=== PATIENT | male | born 1960 | race Caucasian/White ===

== ENCOUNTER 2017-02-24 11:47 | Emergency (ER) | payer OTHER ==
[~2017-02-24] VITALS: Ht 180.3 cm; Wt 75.0 kg
[~2017-02-24 11:47] MED LIST: DOXE100C PO; GABA100C8 PO; HYDR50CA PO; LORA2TAB99 PO; QUET100T4 PO
[2017-02-24] MEDS ORDERED: ONDANSETRON 2MG/ML, 2ML IVPush ONE (12:30)
[2017-02-24] MEDS ORDERED: SODIUM CHLORIDE 0.9% 1,000ML IVBOLUS ONE (12:30)
[2017-02-24] MEDS ORDERED: FAMOTIDINE 20 MG/2 ML IVP ONE (12:30)
[2017-02-24] MEDS ORDERED: SODIUM CHLORIDE FLUSH 10ML SYR IVF ONE (12:30)
[2017-02-24] MEDS ORDERED: ONDANSETRON 2MG/ML, 2ML ONE (12:51)
[2017-02-24] MEDS ORDERED: FAMOTIDINE 20 MG/2 ML ONE (12:51)
[2017-02-24 13:16] LABS: BLOOD UREA NITROGEN 33 mg/dL (7-18)
[2017-02-24 13:20] LABS: ASPARTATE AMINO TRANSFERASE 7 U/L (15-37)
[2017-02-24 14:37] VITALS: BP 165/98
== END 2017-02-24 14:38 | disposition home or self-care (01) ==
LOC: ED 14:30
DX: K29.00 Acute gastritis without bleeding (principal); D72.829 Elevated white blood cell count, unspecified; F15.10 Other stimulant abuse, uncomplicated
CPT/HCPCS: 36415; 80053; 83690; 85025; 96361; 96374; 96375; 99284; J2405; J7030; S0028

== ENCOUNTER 2017-06-27 12:08 | Inpatient (IN) | payer OTHER ==
[~2017-06-27] VITALS: Ht 180.3 cm; Wt 78.1 kg
[~2017-06-27 12:08] MED LIST changes: +GABA-826 PO; -GABA100C8 PO
[2017-06-27] MEDS ORDERED: MORPHINE SULFATE 4 MG/ML, 1ML IVPush PRN (13:00)
[2017-06-27] MEDS ORDERED: SODIUM CHLORIDE FLUSH 10ML SYR IVF ONE (13:00)
[2017-06-27] MEDS ORDERED: FAMOTIDINE 20 MG/2 ML IVP ONE (13:00)
[2017-06-27] MEDS ORDERED: SODIUM CHLORIDE 0.9% 1,000ML IVBOLUS ONE (13:00)
[2017-06-27] MEDS ORDERED: ONDANSETRON 2MG/ML, 2ML IVPush ONE (13:00)
[2017-06-27] MEDS ORDERED: MORPHINE SULFATE 4 MG/ML, 1ML ONE (13:08)
[2017-06-27] MEDS ORDERED: ONDANSETRON 2MG/ML, 2ML ONE (13:08)
[2017-06-27] MEDS ORDERED: FAMOTIDINE 20 MG/2 ML ONE (13:09)
[2017-06-27 13:14] LABS: HEMATOCRIT 46.1 % (39.2-51.8); HEMOGLOBIN 15.9 g/dL (13.7-18.0); WHITE BLOOD COUNT 11.8 x10^3/uL (3.4-10)
[2017-06-27 13:26] LABS: ASPARTATE AMINO TRANSFERASE 16 U/L (15-37); BLOOD UREA NITROGEN 30 mg/dL (7-18)
[2017-06-27] MEDS ORDERED: MAALOX/HYOSCYAMINE/LIDOCAINE 45 ML BTL PO ONE (16:00)
[2017-06-27] MEDS ORDERED: MAALOX/HYOSCYAMINE/LIDOCAINE 45 ML BTL ONE (16:07)
[2017-06-27] MEDS ORDERED: LORazepam 1MG TABLET PO PRN (18:00)
[2017-06-27] MEDS ORDERED: HYDROXYZINE PAMOATE 50 MG HOMEMEDPO PRN (18:00)
[2017-06-27] MEDS ORDERED: LABETALOL 5MG/ML, 20ML IVPush PRN ×2 (18:00→20:30)
[2017-06-27] MEDS ORDERED: ENALAPRILAT 1.25 MG/ML, 2ML IVPush PRN ×2 (18:00→20:30)
[2017-06-27] MEDS ORDERED: POLYETHYLENE GLYCOL 17 GM PACKET PO PRN ×2 (18:00→20:30)
[2017-06-27] MEDS ORDERED: BISACODYL 10 MG SUPP PR PRN ×2 (18:00→20:30)
[2017-06-27] MEDS ORDERED: ACETAMINOPHEN 325 MG TABLET PO PRN ×2 (18:00→20:30)
[2017-06-27] MEDS ORDERED: DOCUSATE 100 MG CAPSULE PO PRN ×2 (18:00→20:30)
[2017-06-27] MEDS: DOXEPIN 100 MG CAPSULE PO SCH (21:00)
[2017-06-27] MEDS: LACTOBACILLUS CHEW TABLET PO SCH (21:09)
[2017-06-27] MEDS: QUETIAPINE 100MG TABLET PO SCH (21:09)
[2017-06-27] MEDS: SODIUM CHLORIDE 0.9% 1,000 ML IV SCH (21:10)
[2017-06-27] MEDS: GABAPENTIN 100 MG CAPSULE PO SCH (21:10)
[2017-06-27 21:53] VITALS: BP 156/96
[2017-06-28 02:30] VITALS: BP 155/93
[2017-06-28] MEDS: PROMETHAZINE 25 MG/ML, 1ML IM PRN ×2 (04:12→09:53)
[2017-06-28 04:46] LABS: HEMATOCRIT 40.1 % (39.2-51.8); HEMOGLOBIN 13.7 g/dL (13.7-18.0); WHITE BLOOD COUNT 10.3 x10^3/uL (3.4-10)
[2017-06-28 04:53] LABS: BLOOD UREA NITROGEN 24 mg/dL (7-18)
[2017-06-28 05:07] LABS: ASPARTATE AMINO TRANSFERASE 11 U/L (15-37)
[2017-06-28] MEDS: LACTOBACILLUS CHEW TABLET PO SCH ×4 (05:50→22:24)
[2017-06-28] MEDS ORDERED: ALBUTEROL SULFATE 2.5 MG/3 ML NPPB SCH (07:00)
[2017-06-28] MEDS ORDERED: FAMOTIDINE 20 MG TABLET PO ONE (09:00)
[2017-06-28] MEDS ORDERED: MAALOX/HYOSCYAMINE/LIDOCAINE 45 ML BTL PO PRN (09:00)
[2017-06-28] MEDS: THIAMINE 100MG TABLET PO SCH (09:48)
[2017-06-28] MEDS: FOLIC ACID 1 MG TABLET PO SCH (09:48)
[2017-06-28] MEDS: GABAPENTIN 100 MG CAPSULE PO SCH ×3 (09:48→22:24)
[2017-06-28] MEDS: SODIUM CHLORIDE 0.9% 1,000 ML IV SCH ×2 (09:48→22:23)
[2017-06-28] MEDS: QUETIAPINE 100MG TABLET PO SCH ×2 (09:48→22:24)
[2017-06-28 10:49] VITALS: BP 118/54
[2017-06-28 14:56] VITALS: BP 137/82
[2017-06-28] MEDS: MAALOX/HYOSCYAMINE/LIDOCAINE 45 ML BTL PO PRN ×2 (15:33→22:25)
[2017-06-28] MEDS ORDERED: CEFTRIAXONE PMX 1GM/50ML 50 ML IV SCH (17:00)
[2017-06-28] MEDS ORDERED: POTASSIUM PHOSPHATE 22 MEQ in SODIUM CHLORIDE 0.9% 500 ML IV ONE (17:00)
[2017-06-28] MEDS: HYDROcodone/APAP 5/325 TABLET PO PRN ×2 (17:54→22:26)
[2017-06-28] MEDS: METRONIDAZOLE PMX 500MG/100ML 100 ML IV SCH (18:09)
[2017-06-28 20:26] VITALS: BP 156/91
[2017-06-28] MEDS: DOXEPIN 100 MG CAPSULE PO SCH (21:00)
[2017-06-28] MEDS ORDERED: FAMOTIDINE 20 MG TABLET PO SCH (21:00)
[2017-06-28] MEDS: FAMOTIDINE 20 MG/2 ML IVPush SCH (22:23)
[2017-06-29] MEDS: METRONIDAZOLE PMX 500MG/100ML 100 ML IV SCH (02:01)
[2017-06-29 02:07] VITALS: BP 119/64
[2017-06-29] MEDS: LACTOBACILLUS CHEW TABLET PO SCH ×4 (04:49→23:54)
[2017-06-29] MEDS: HYDROcodone/APAP 5/325 TABLET PO PRN ×4 (04:49→23:53)
[2017-06-29] MEDS: MAALOX/HYOSCYAMINE/LIDOCAINE 45 ML BTL PO PRN ×3 (04:49→16:34)
[2017-06-29 05:55] LABS: BLOOD UREA NITROGEN 15 mg/dL (7-18)
[2017-06-29 06:09] LABS: HEMATOCRIT 34.7 % (39.2-51.8); HEMOGLOBIN 11.9 g/dL (13.7-18.0); WHITE BLOOD COUNT 4.8 x10^3/uL (3.4-10)
[2017-06-29] MEDS: SODIUM CHLORIDE 0.9% 1,000 ML IV SCH (06:33)
[2017-06-29] MEDS ORDERED: ALBUTEROL SULFATE 2.5 MG/3 ML NPPB PRN (07:00)
[2017-06-29 07:22] VITALS: BP 113/74
[2017-06-29] MEDS: GABAPENTIN 100 MG CAPSULE PO SCH ×3 (08:57→23:54)
[2017-06-29] MEDS: THIAMINE 100MG TABLET PO SCH (08:57)
[2017-06-29] MEDS: FOLIC ACID 1 MG TABLET PO SCH (08:57)
[2017-06-29] MEDS: QUETIAPINE 100MG TABLET PO SCH ×2 (08:58→23:54)
[2017-06-29] MEDS: FAMOTIDINE 20 MG/2 ML IVPush SCH (08:58)
[2017-06-29] MEDS ORDERED: VANCOMYCIN PER PHARMACY MC PRN (09:00)
[2017-06-29] MEDS ORDERED: VANCOMYCIN 1,600 MG in SODIUM CHLORIDE 0.9% 250 ML IV SCH (09:30)
[2017-06-29] MEDS ORDERED: PHARMACOKINETIC CONSULTATION MC ONE (09:30)
[2017-06-29] MEDS ORDERED: VANCOMYCIN 1,500 MG in SODIUM CHLORIDE 0.9% 250 ML IV SCH (09:30)
[2017-06-29] MEDS ORDERED: PHARMACOKINETIC MONITORING MC PRN (09:30)
[2017-06-29 15:09] VITALS: BP 100/46
[2017-06-29 15:17] VITALS: BP 145/55
[2017-06-29] MEDS: AMOXICILLIN 500 MG CAPSULE PO SCH ×2 (16:34→23:54)
[2017-06-29 18:49] VITALS: BP 131/74
[2017-06-29] MEDS: DOXEPIN 100 MG CAPSULE PO SCH (23:53)
[2017-06-30] MEDS: MAALOX/HYOSCYAMINE/LIDOCAINE 45 ML BTL PO PRN ×2 (00:42→15:31)
[2017-06-30 08:02] LABS: HEMATOCRIT 36.5 % (39.2-51.8); HEMOGLOBIN 12.6 g/dL (13.7-18.0); WHITE BLOOD COUNT 5.1 x10^3/uL (3.4-10)
[2017-06-30 08:06] LABS: ASPARTATE AMINO TRANSFERASE 11 U/L (15-37); BLOOD UREA NITROGEN 11 mg/dL (7-18)
[2017-06-30] MEDS: QUETIAPINE 100MG TABLET PO SCH ×2 (09:50→21:54)
[2017-06-30] MEDS: AMOXICILLIN 500 MG CAPSULE PO SCH ×3 (09:50→21:54)
[2017-06-30] MEDS: FOLIC ACID 1 MG TABLET PO SCH (09:50)
[2017-06-30] MEDS: TAMSULOSIN 0.4 MG CAP.ER.24H PO SCH (09:50)
[2017-06-30] MEDS: GABAPENTIN 100 MG CAPSULE PO SCH ×2 (09:50→15:31)
[2017-06-30] MEDS: THIAMINE 100MG TABLET PO SCH (09:50)
[2017-06-30] MEDS: HYDROcodone/APAP 5/325 TABLET PO PRN (09:54)
[2017-06-30 09:57] VITALS: BP 155/78
[2017-06-30 16:24] VITALS: BP 125/75
[2017-06-30 20:05] VITALS: BP 123/65
[2017-06-30] MEDS ORDERED: GABAPENTIN 100 MG CAPSULE PO SCH ×2 (21:00)
[2017-06-30] MEDS: MIRTAZAPINE 15 MG TABLET PO SCH (21:54)
[2017-06-30] MEDS: hydrOXyzine 50MG TABLET PO PRN (21:54)
[2017-06-30] MEDS ORDERED: GABA300C10 PO (23:36)
[2017-06-30] MEDS ORDERED: QUET100T4 PO (23:36)
[2017-06-30] MEDS ORDERED: AMOX-291 PO (23:36)
[2017-06-30] MEDS ORDERED: MIRT15TA4 PO (23:36)
[2017-06-30] MEDS ORDERED: TAMS-11 PO (23:36)
[2017-07-01 02:06] VITALS: BP 130/89
[2017-07-01 12:11] VITALS: BP 145/84
[2017-07-01] MEDS: TAMSULOSIN 0.4 MG CAP.ER.24H PO SCH (14:48)
[2017-07-01] MEDS: FOLIC ACID 1 MG TABLET PO SCH (14:48)
[2017-07-01] MEDS: GABAPENTIN 300 MG CAPSULE PO SCH ×3 (14:48→20:20)
[2017-07-01] MEDS: QUETIAPINE 100MG TABLET PO SCH ×2 (14:49→20:20)
[2017-07-01] MEDS: AMOXICILLIN 500 MG CAPSULE PO SCH ×3 (14:49→20:20)
[2017-07-01] MEDS: hydrOXyzine 50MG TABLET PO PRN (14:49)
[2017-07-01] MEDS: THIAMINE 100MG TABLET PO SCH (14:49)
[2017-07-01] MEDS: MAALOX/HYOSCYAMINE/LIDOCAINE 45 ML BTL PO PRN (17:26)
[2017-07-01 17:43] VITALS: BP 136/78
[2017-07-01 19:53] VITALS: BP 121/76
[2017-07-01] MEDS: MIRTAZAPINE 15 MG TABLET PO SCH (20:20)
[2017-07-02] MEDS: GABAPENTIN 300 MG CAPSULE PO SCH (07:59)
[2017-07-02] MEDS: FOLIC ACID 1 MG TABLET PO SCH (07:59)
[2017-07-02] MEDS: AMOXICILLIN 500 MG CAPSULE PO SCH (07:59)
[2017-07-02] MEDS: QUETIAPINE 100MG TABLET PO SCH (07:59)
[2017-07-02] MEDS: TAMSULOSIN 0.4 MG CAP.ER.24H PO SCH (07:59)
[2017-07-02 08:00] VITALS: BP 121/84
[2017-07-02] MEDS: THIAMINE 100MG TABLET PO SCH (08:04)
== END 2017-07-02 15:45 | disposition home or self-care (01) | DRG 896 ==
LOC: ED 14:16 → EDIP 16:13 → 4NOR 20:35 → 3E 07-01 17:38
PROVIDERS: ADMIT Family Medicine; ATTEND Family Medicine
DX: F10.239 Alcohol dependence with withdrawal, unspecified (principal); K22.6 Gastro-esophageal laceration-hemorrhage syndrome; K26.4 Chronic or unspecified duodenal ulcer with hemorrhage; R45.851 Suicidal ideations; K29.21 Alcoholic gastritis with bleeding; G40.509 Epileptic seizures related to external causes, not intractable, without status epilepticus; N39.0 Urinary tract infection, site not specified; F31.81 Bipolar II disorder; F10.288 Alcohol dependence with other alcohol-induced disorder; F12.90 Cannabis use, unspecified, uncomplicated; F17.210 Nicotine dependence, cigarettes, uncomplicated; F43.22 Adjustment disorder with anxiety; G40.909 Epilepsy, unspecified, not intractable, without status epilepticus; J44.9 Chronic obstructive pulmonary disease, unspecified; Z87.19 Personal history of other diseases of the digestive system; Z91.5 Personal history of self-harm
CPT/HCPCS: 36415; 74020; 76700; 80048; 80053; 81001; 82962; 83036; 83690; 83735; 84100; 84439; 84443; 84484; 85025; 85610; 85730; 86677; 87077; 87086; 87186; 93005; 96361; 96374; 96375; J2405; J2550; J3370; J7030; J7040; J7050; S0028

== ENCOUNTER 2018-01-08 05:09 | Emergency (ER) | payer OTHER ==
[~2018-01-08] VITALS: Ht 180.3 cm; Wt 77.0 kg
[~2018-01-08 05:09] MED LIST changes: +AMOX-291 PO; +GABA300C10 PO; +MIRT15TA4 PO; +TAMS-11 PO
[2018-01-08] MEDS ORDERED: FAMOTIDINE 20 MG/2 ML ONE (05:42)
[2018-01-08] MEDS ORDERED: MORPHINE SULFATE 4 MG/ML, 1ML ONE ×2 (05:42→08:08)
[2018-01-08] MEDS ORDERED: FAMOTIDINE 20 MG/2 ML IVPush ONE (06:00)
[2018-01-08] MEDS ORDERED: MORPHINE SULFATE 4 MG/ML, 1ML IVPush PRN (06:00)
[2018-01-08] MEDS ORDERED: SODIUM CHLORIDE FLUSH 10ML SYR IVF ONE (06:00)
[2018-01-08] MEDS ORDERED: SODIUM CHLORIDE 0.9% 1,000ML IVBOLUS ONE (06:00)
[2018-01-08 06:02] LABS: BASOPHILS # (AUTO) 0.01 x10^3/uL (0-0.1); BASOPHILS % (AUTO) 0 % (0-1); EOSINOPHILS # (AUTO) 0.02 x10^3/uL (0-0.4); EOSINOPHILS % (AUTO) 0 % (1-7); LYMPHOCYTES % (AUTO) 13 % (22-44); MD NO; MEAN CORPUSCULAR HEMOGLOBIN 29.7 pg (27.5-34.5); MEAN CORPUSCULAR HGB CONC 33.7 g/dL (33.2-36.2); MEAN CORPUSCULAR VOLUME 88.3 fL (81-97); MEAN PLATELET VOLUME 7.4 fL (7.4-10.4); MONOCYTES # (AUTO) 0.38 x10^3/uL (0.2-0.8); MONOCYTES % (AUTO) 3 % (2-9); NEUTROPHILS % (AUTO) 83 % (42-75); PLATELET COUNT 380 x10^3/uL (130-400); RED CELL DISTRIBUTION WIDTH 14.3 % (9.4-14.8)
[2018-01-08 06:08] LABS: INTERNATIONAL NORMALIZED RATIO 0.96 (0.93-1.1); PROTHROMBIN TIME 9.9 Seconds (9.6-11.5)
[2018-01-08 06:12] LABS: ALANINE AMINOTRANSFERASE 20 U/L (12-78); ANION GAP 7 mmol/L (5-15); CALCIUM 9.5 mg/dL (8.5-10.1); CHLORIDE 109 mmol/L (98-107); CREATININE 0.86 mg/dL (0.7-1.3)
[2018-01-08 06:15] LABS: ALKALINE PHOSPHATASE 106 U/L (45-117); BILIRUBIN,TOTAL 0.3 mg/dL (0.2-1.0); TOTAL PROTEIN 7.7 g/dL (6.4-8.2)
[2018-01-08 07:47] VITALS: BP 161/82
== END 2018-01-08 08:42 | disposition home or self-care (01) ==
LOC: ED 05:41
DX: R10.13 Epigastric pain (principal); R11.2 Nausea with vomiting, unspecified; J44.9 Chronic obstructive pulmonary disease, unspecified; I10 Essential (primary) hypertension; F43.10 Post-traumatic stress disorder, unspecified
CPT/HCPCS: 36415; 74022; 80053; 85025; 85610; 93005; 96361; 96374; 96375; 99285; J7030; S0028

== ENCOUNTER 2021-05-09 01:50 | Emergency (ER) | payer OTHER ==
[~2021-05-09] VITALS: Ht 172.7 cm; Wt 75.0 kg
[~2021-05-09 01:50] MED LIST changes: +MIRT-14 PO; -MIRT15TA4 PO
[2021-05-09 01:54] VITALS: BP 118/70
--- NOTE | 2021-05-09 02:15 | NUR ---
BREAK RN: PT CAME INTO ED WITH DESIRE TO DETOX, PT PROVIDED RESOURCES FOR DETOX. PT NAD, DENIES ADDITIONAL QUESTIONS OR NEEDS, WCTM.
--- NOTE | 2021-05-09 02:18 | NUR ---
Patient given discharge instructions and they have confirmed that they understand the instructions. Patient ambulatory with steady gait. NAD, all questions answered appropriately, denies additional needs at this time. No personal belongings left in room after discharge.
== END 2021-05-09 02:19 | disposition home or self-care (01) ==
LOC: ED 02:10
DX: F12.10 Cannabis abuse, uncomplicated (principal); F15.10 Other stimulant abuse, uncomplicated; F14.10 Cocaine abuse, uncomplicated; Z72.9 Problem related to lifestyle, unspecified; I10 Essential (primary) hypertension; J44.9 Chronic obstructive pulmonary disease, unspecified; Z87.11 Personal history of peptic ulcer disease
CPT/HCPCS: 99281